=== PATIENT | female | born 1985 | race Caucasian/White ===

== ENCOUNTER 2018-03-13 18:44 | Inpatient (IN) | payer OTHER ==
[~2018-03-13] VITALS: Ht 170.2 cm; Wt 64.2 kg
[2018-03-13] MEDS ORDERED: MYCO250C PO (19:26)
[2018-03-13] MEDS ORDERED: MESA500C PO (19:26)
[2018-03-13] MEDS ORDERED: TACR1CAP4 PO (19:26)
[2018-03-13] MEDS ORDERED: PRED5TAB PO (19:26)
[2018-03-13 19:46] LABS: ALANINE AMINOTRANSFERASE 36 U/L (12-78); ALBUMIN 3.4 g/dL (3.4-5.0); ANION GAP 10 mmol/L (5-15); CALCIUM 8.5 mg/dL (8.5-10.1); CHLORIDE 102 mmol/L (98-107); CREATININE 2.37 mg/dL (0.55-1.02)
[2018-03-13 19:49] LABS: ALKALINE PHOSPHATASE 80 U/L (45-117); BILIRUBIN,TOTAL 0.7 mg/dL (0.2-1.0); TOTAL PROTEIN 7.9 g/dL (6.4-8.2)
[2018-03-13 20:06] LABS: HEMOGRAM NOTE RECHECKED; MEAN CORPUSCULAR HEMOGLOBIN 29.5 pg (27.0-34.8); MEAN CORPUSCULAR VOLUME 86.8 fL (80-100); MEAN PLATELET VOLUME 9.6 fL (7.4-10.4); PLATELET COUNT 92 x10^3/uL (130-400); RED CELL DISTRIBUTION WIDTH 14.7 % (9.6-15.2)
[2018-03-13 20:07] LABS: MD YES
[2018-03-13 20:12] LABS: BAND#(MANUAL) 0.01 x10^3/uL; BANDS%(MANUAL) 2 % (0-7); EOS#(MANUAL) 0.04 x10^3/uL (0.0-0.4); EOS% (MANUAL) 6 % (1-7); LYMPH#(MANUAL) 0.27 x10^3/uL (1-3.4); LYMPHS% (MANUAL) 39 % (22-44); MONOS#(MANUAL) 0.08 x10^3/uL (0.3-2.7); MONOS% (MANUAL) 11 % (2-9); SEG#(MANUAL) 0.29 x10^3/uL (1.8-6.8); SEGS% (MANUAL) 42 % (42-75)
[2018-03-13 20:13] LABS: <PLATELET ESTIMATE> DECREASED; <PLT MORPHOLOGY> NORMAL PLT MORPH; ANISOCYTOSIS 1+; OVALOCYTES 1+; TOXIC GRAN 1+
[2018-03-13] MEDS ORDERED: POTASSIUM CHLORIDE 20 MEQ TAB.ER.PRT ONE (21:10)
[2018-03-13] MEDS ORDERED: POTASSIUM CHLORIDE 20 MEQ TAB.ER.PRT PO ONE (21:30)
[2018-03-13 22:17] LABS: RED BLOOD COUNT 3.12 x10^6/uL (3.82-5.3)
[2018-03-13 22:25] LABS: ABSOLUTE RETICS # 0.062 x10^6/uL (0.5-2.5); RETICULOCYTE COUNT % 1.98 % (0.5-1.5)
[2018-03-13] MEDS ORDERED: ONDANSETRON 2MG/ML, 2ML IVPush PRN (23:30)
[2018-03-13] MEDS ORDERED: ONDANSETRON ODT 4 MG PO PRN (23:30)
[2018-03-13 23:39] VITALS: BP 148/96
[2018-03-14] MEDS: MESALAMINE 250 MG CAPSULE.ER PO SCH ×4 (00:18→20:43)
[2018-03-14] MEDS: AMOXICILLIN 500 MG CAPSULE PO SCH ×3 (00:39→20:44)
[2018-03-14] MEDS: ACYCLOVIR 400 MG TABLET PO SCH ×2 (00:39→09:56)
[2018-03-14] MEDS ORDERED: ACYC500V BC (01:23)
[2018-03-14] MEDS ORDERED: AMOX500T BC (01:23)
[2018-03-14] MEDS ORDERED: AMLO1POW2 BC (01:23)
[2018-03-14 01:32] VITALS: BP 120/76
[2018-03-14] MEDS: NS + 20MEQ KCL 1,000 ML IV SCH ×2 (01:33→11:21)
[2018-03-14 04:33] LABS: CREATININE,URINE RANDOM 34.4 mg/dL
[2018-03-14 05:15] LABS: MICROSCOPIC NOT IND
[2018-03-14 05:18] LABS: CULTURE INDICATED? NO
[2018-03-14 05:27] LABS: MEAN CORPUSCULAR HEMOGLOBIN 28.9 pg (27.0-34.8); MEAN CORPUSCULAR HGB CONC 33.9 g/dL (32.4-35.8); MEAN CORPUSCULAR VOLUME 85.4 fL (80-100); RED BLOOD COUNT 2.77 x10^6/uL (3.82-5.3); RED CELL DISTRIBUTION WIDTH 14.3 % (9.6-15.2)
[2018-03-14 05:28] LABS: ALBUMIN 2.7 g/dL (3.4-5.0); ANION GAP 9 mmol/L (5-15); CALCIUM 7.6 mg/dL (8.5-10.1); CHLORIDE 106 mmol/L (98-107)
[2018-03-14 05:31] LABS: ALANINE AMINOTRANSFERASE 33 U/L (12-78); ALKALINE PHOSPHATASE 65 U/L (45-117); BILIRUBIN,TOTAL 0.6 mg/dL (0.2-1.0); CREATININE 1.84 mg/dL (0.55-1.02); TOTAL PROTEIN 6.5 g/dL (6.4-8.2)
[2018-03-14 06:29] LABS: MD YES; MEAN PLATELET VOLUME 9.7 fL (7.4-10.4); PLATELET COUNT 67 x10^3/uL (130-400)
[2018-03-14 06:38] LABS: ANISOCYTOSIS 1+; BAND#(MANUAL) 0.02 x10^3/uL; BANDS%(MANUAL) 3 % (0-7); LYMPH#(MANUAL) 0.38 x10^3/uL (1-3.4); LYMPHS% (MANUAL) 64 % (22-44); MONOS#(MANUAL) 0.03 x10^3/uL (0.3-2.7); MONOS% (MANUAL) 5 % (2-9); OVALOCYTES 1+; SEG#(MANUAL) 0.17 x10^3/uL (1.8-6.8); SEGS% (MANUAL) 28 % (42-75); TOXIC GRAN 1+
[2018-03-14 06:39] LABS: <PLATELET ESTIMATE> DECREASED; <PLT MORPHOLOGY> NORMAL PLT MORPH
[2018-03-14 07:59] VITALS: BP 123/83
[2018-03-14] MEDS ORDERED: TACROLIMUS 1 MG CAPSULE PO SCH (10:00)
[2018-03-14] MEDS ORDERED: LIDOCAINE 2% VISCOUS 15 ML UDC MM PRN (10:30)
[2018-03-14] MEDS ORDERED: LIDOCAINE 2% VISCOUS, 100ML MM PRN (10:30)
[2018-03-14] MEDS: AMLODIPINE 5 MG TABLET PO SCH (11:24)
[2018-03-14] MEDS ORDERED: MAGNESIUM SULFATE PMX 2GM/50ML 50 ML IV ONE (12:30)
[2018-03-14 15:50] VITALS: BP 134/88
[2018-03-14] MEDS: ACYCLOVIR 660 MG in SODIUM CHLORIDE 0.9% 100 ML IV SCH (18:08)
[2018-03-14] MEDS ORDERED: TBO-FILGRASTIM 300 MCG/0.5 ML SQ SCH (18:30)
[2018-03-14 20:05] VITALS: BP 125/82
[2018-03-14] MEDS: FILGRASTIM 300 MCG/ML SQ SCH (20:44)
[2018-03-15] MEDS: NS + 20MEQ KCL 1,000 ML IV SCH ×2 (00:28→10:01)
[2018-03-15] MEDS: ACYCLOVIR 660 MG in SODIUM CHLORIDE 0.9% 100 ML IV SCH ×2 (03:18→16:25)
[2018-03-15 03:19] VITALS: BP 113/74
[2018-03-15] MEDS: MESALAMINE 250 MG CAPSULE.ER PO SCH ×4 (06:12→20:53)
[2018-03-15 07:21] LABS: ANION GAP 10 mmol/L (5-15); CHLORIDE 111 mmol/L (98-107)
[2018-03-15 07:26] LABS: MEAN CORPUSCULAR HEMOGLOBIN 29.1 pg (27.0-34.8); MEAN CORPUSCULAR HGB CONC 33.7 g/dL (32.4-35.8); MEAN CORPUSCULAR VOLUME 86.3 fL (80-100); PLATELET COUNT 66 x10^3/uL (130-400); RED BLOOD COUNT 2.72 x10^6/uL (3.82-5.3); RED CELL DISTRIBUTION WIDTH 14.6 % (9.6-15.2)
[2018-03-15 07:37] VITALS: BP 114/75
[2018-03-15 07:41] LABS: MD YES
[2018-03-15 07:50] LABS: BAND#(MANUAL) 0.03 x10^3/uL; BANDS%(MANUAL) 4 % (0-7); LYMPH#(MANUAL) 0.37 x10^3/uL (1-3.4); LYMPHS% (MANUAL) 46 % (22-44); MONOS#(MANUAL) 0.03 x10^3/uL (0.3-2.7); MONOS% (MANUAL) 4 % (2-9); SEG#(MANUAL) 0.37 x10^3/uL (1.8-6.8); SEGS% (MANUAL) 46 % (42-75)
[2018-03-15 07:51] LABS: <PLATELET ESTIMATE> DECREASED; <PLT MORPHOLOGY> NORMAL PLT MORPH; ANISOCYTOSIS 1+; OVALOCYTES 1+; TOXIC GRAN 1+
[2018-03-15] MEDS: AMLODIPINE 5 MG TABLET PO SCH (08:49)
[2018-03-15] MEDS: AMOXICILLIN 500 MG CAPSULE PO SCH ×2 (08:49→20:53)
[2018-03-15] MEDS ORDERED: TBO-FILGRASTIM 300 MCG/0.5 ML SQ SCH (09:00)
[2018-03-15 12:06] LABS: ALBUMIN 2.6 g/dL (3.4-5.0)
[2018-03-15 12:10] LABS: BILIRUBIN, DIRECT 0.2 mg/dL (0.1-0.2); BILIRUBIN,INDIRECT 0.4 mg/dL (0.0-2.0); BILIRUBIN,TOTAL 0.6 mg/dL (0.2-1.0); TOTAL PROTEIN 6.2 g/dL (6.4-8.2)
[2018-03-15 13:32] VITALS: BP 122/83
[2018-03-15 19:51] VITALS: BP 128/85
[2018-03-15] MEDS: FILGRASTIM 300 MCG/ML SQ SCH (20:53)
[2018-03-15] MEDS ORDERED: NS + 20MEQ KCL 1,000 ML IV SCH (23:23)
[2018-03-16 03:00] VITALS: BP 121/80
[2018-03-16] MEDS: ACYCLOVIR 660 MG in SODIUM CHLORIDE 0.9% 100 ML IV SCH (03:16)
[2018-03-16] MEDS: MESALAMINE 250 MG CAPSULE.ER PO SCH ×4 (05:06→20:51)
[2018-03-16 06:44] VITALS: BP 120/75
[2018-03-16 08:03] LABS: ALBUMIN 2.6 g/dL (3.4-5.0); ANION GAP 8 mmol/L (5-15); CALCIUM 7.7 mg/dL (8.5-10.1); CHLORIDE 113 mmol/L (98-107)
[2018-03-16 08:05] LABS: MEAN CORPUSCULAR HEMOGLOBIN 28.5 pg (27.0-34.8); MEAN CORPUSCULAR HGB CONC 33.3 g/dL (32.4-35.8); MEAN CORPUSCULAR VOLUME 85.7 fL (80-100); MEAN PLATELET VOLUME 10.3 fL (7.4-10.4); PLATELET COUNT 70 x10^3/uL (130-400); RED BLOOD COUNT 2.89 x10^6/uL (3.82-5.3); RED CELL DISTRIBUTION WIDTH 14.7 % (9.6-15.2)
[2018-03-16 08:06] LABS: ALANINE AMINOTRANSFERASE 36 U/L (12-78); ALKALINE PHOSPHATASE 70 U/L (45-117); BILIRUBIN,TOTAL 0.8 mg/dL (0.2-1.0); CREATININE 1.33 mg/dL (0.55-1.02); TOTAL PROTEIN 6.3 g/dL (6.4-8.2)
[2018-03-16] MEDS: AMLODIPINE 5 MG TABLET PO SCH (08:13)
[2018-03-16] MEDS: AMOXICILLIN 500 MG CAPSULE PO SCH ×2 (08:13→20:51)
[2018-03-16 08:22] LABS: MD YES
[2018-03-16 08:28] LABS: BAND#(MANUAL) 0.06 x10^3/uL; BANDS%(MANUAL) 4 % (0-7); BASOS#(MANUAL) 0.03 x10^3/uL (0-0.1); BASOS% (MANUAL) 2 % (0-1); LYMPH#(MANUAL) 0.48 x10^3/uL (1-3.4); LYMPHS% (MANUAL) 30 % (22-44); MONOS#(MANUAL) 0.21 x10^3/uL (0.3-2.7); MONOS% (MANUAL) 13 % (2-9); SEG#(MANUAL) 0.82 x10^3/uL (1.8-6.8); SEGS% (MANUAL) 51 % (42-75)
[2018-03-16 08:29] LABS: ANISOCYTOSIS 1+; OVALOCYTES 1+; POLYCHROMASIA 1+; TOXIC GRAN 1+
[2018-03-16 08:30] LABS: <PLATELET ESTIMATE> DECREASED; <PLT MORPHOLOGY> NORMAL PLT MORPH; SCHISTOCYTES 1+
[2018-03-16 08:31] LABS: SPHEROCYTES 1+
[2018-03-16] MEDS ORDERED: POTASSIUM CHLORIDE 20 MEQ TAB.ER.PRT PO ONE (09:00)
[2018-03-16 12:27] VITALS: BP 124/83
[2018-03-16 19:55] VITALS: BP 126/86
[2018-03-16] MEDS: FILGRASTIM 300 MCG/ML SQ SCH (20:52)
[2018-03-17 04:21] VITALS: BP 122/82
[2018-03-17 04:45] LABS: MEAN CORPUSCULAR HGB CONC 33.8 g/dL (32.4-35.8); MEAN PLATELET VOLUME 9.9 fL (7.4-10.4); PLATELET COUNT 69 x10^3/uL (130-400); RED BLOOD COUNT 2.96 x10^6/uL (3.82-5.3); RED CELL DISTRIBUTION WIDTH 15.5 % (9.6-15.2)
[2018-03-17 04:53] LABS: ALBUMIN 2.6 g/dL (3.4-5.0); ANION GAP 9 mmol/L (5-15); CHLORIDE 113 mmol/L (98-107)
[2018-03-17 04:58] LABS: % IRON SATURATION 27 % (20-55); ALANINE AMINOTRANSFERASE 35 U/L (12-78); ALKALINE PHOSPHATASE 70 U/L (45-117); CREATININE 1.32 mg/dL (0.55-1.02); IRON LEVEL 55 mcg/dL (50-170); TOTAL IRON BINDING CAPACITY 201 mcg/dL (250-450); TOTAL PROTEIN 6.4 g/dL (6.4-8.2)
[2018-03-17 05:48] LABS: MD YES
[2018-03-17] MEDS: MESALAMINE 250 MG CAPSULE.ER PO SCH ×4 (05:51→21:15)
[2018-03-17 05:53] LABS: ANISOCYTOSIS 1+; BAND#(MANUAL) 0.05 x10^3/uL; BANDS%(MANUAL) 3 % (0-7); EOS#(MANUAL) 0.05 x10^3/uL (0.0-0.4); EOS% (MANUAL) 3 % (1-7); LYMPH#(MANUAL) 0.52 x10^3/uL (1-3.4); LYMPHS% (MANUAL) 29 % (22-44); METAMYELOCYTES# (MANUAL) 0.04 x10^3/uL (0-0); METAMYELOCYTES% (MANUAL) 2 % (0-1); MONOS#(MANUAL) 0.07 x10^3/uL (0.3-2.7); MONOS% (MANUAL) 4 % (2-9); OVALOCYTES 1+; POLYCHROMASIA 1+; SEG#(MANUAL) 1.06 x10^3/uL (1.8-6.8); SEGS% (MANUAL) 59 % (42-75)
[2018-03-17 05:58] LABS: SCHISTOCYTES 1+; TOXIC GRAN 1+
[2018-03-17 05:59] LABS: <PLATELET ESTIMATE> DECREASED; <PLT MORPHOLOGY> NORMAL PLT MORPH
[2018-03-17 06:52] VITALS: BP 121/80
[2018-03-17] MEDS ORDERED: MAGNESIUM SULFATE PMX 4GM/100M 100 ML IV ONE (07:30)
[2018-03-17] MEDS ORDERED: MAGNESIUM SULFATE PMX 2GM/50ML 50 ML IV ONE (09:00)
[2018-03-17] MEDS: AMOXICILLIN 500 MG CAPSULE PO SCH ×2 (09:42→21:14)
[2018-03-17] MEDS: AMLODIPINE 5 MG TABLET PO SCH (09:42)
[2018-03-17 12:10] VITALS: BP 125/83
[2018-03-17] MEDS: FILGRASTIM 300 MCG/ML SQ SCH (21:00)
[2018-03-17 22:08] VITALS: BP 123/83
[2018-03-18 04:22] VITALS: BP 116/79
[2018-03-18 05:00] LABS: MEAN CORPUSCULAR HEMOGLOBIN 29.5 pg (27.0-34.8); MEAN CORPUSCULAR HGB CONC 34.2 g/dL (32.4-35.8); MEAN CORPUSCULAR VOLUME 86.1 fL (80-100); MEAN PLATELET VOLUME 9.9 fL (7.4-10.4); PLATELET COUNT 63 x10^3/uL (130-400); RED BLOOD COUNT 2.81 x10^6/uL (3.82-5.3); RED CELL DISTRIBUTION WIDTH 14.6 % (9.6-15.2)
[2018-03-18 05:06] LABS: ALANINE AMINOTRANSFERASE 32 U/L (12-78); ALBUMIN 2.5 g/dL (3.4-5.0); ANION GAP 10 mmol/L (5-15); CHLORIDE 111 mmol/L (98-107)
[2018-03-18 05:08] LABS: ALKALINE PHOSPHATASE 68 U/L (45-117); BILIRUBIN,TOTAL 0.6 mg/dL (0.2-1.0); CREATININE 1.29 mg/dL (0.55-1.02); TOTAL PROTEIN 6.3 g/dL (6.4-8.2)
[2018-03-18 05:38] LABS: MD YES
[2018-03-18 05:48] LABS: BAND#(MANUAL) 0.06 x10^3/uL; BANDS%(MANUAL) 4 % (0-7); EOS#(MANUAL) 0.04 x10^3/uL (0.0-0.4); EOS% (MANUAL) 3 % (1-7); LYMPH#(MANUAL) 0.28 x10^3/uL (1-3.4); LYMPHS% (MANUAL) 20 % (22-44); MONOS% (MANUAL) 7 % (2-9); SEG#(MANUAL) 0.92 x10^3/uL (1.8-6.8); SEGS% (MANUAL) 66 % (42-75)
[2018-03-18 05:49] LABS: ANISOCYTOSIS 1+; OVALOCYTES 1+; POLYCHROMASIA 1+
[2018-03-18 05:50] LABS: <PLATELET ESTIMATE> DECREASED; <PLT MORPHOLOGY> NORMAL PLT MORPH; SCHISTOCYTES 1+; TOXIC GRAN 1+
[2018-03-18] MEDS: MESALAMINE 250 MG CAPSULE.ER PO SCH ×3 (06:39→16:17)
[2018-03-18 06:43] VITALS: BP 123/81
[2018-03-18] MEDS: AMOXICILLIN 500 MG CAPSULE PO SCH (09:01)
[2018-03-18] MEDS: AMLODIPINE 5 MG TABLET PO SCH (09:01)
[2018-03-18] MEDS ORDERED: AMOXICILLIN/CLAV 500-125MG TABLET PO SCH (11:00)
[2018-03-18] MEDS ORDERED: FLUCONAZOLE 200 MG TABLET PO SCH (12:00)
[2018-03-18] MEDS ORDERED: TACROLIMUS 0.5 MG CAPSULE PO SCH (12:00)
[2018-03-18 12:16] VITALS: BP 124/86
[2018-03-18] MEDS ORDERED: POTASSIUM CHLORIDE 20 MEQ TAB.ER.PRT PO ONE (12:30)
[2018-03-18] MEDS ORDERED: TACR1CAP4 PO (16:10)
[2018-03-18] MEDS ORDERED: FILGRASTIM 300 MCG/ML SQ SCH (17:00)
== END 2018-03-18 18:20 | disposition home or self-care (01) | DRG 809 ==
LOC: ED 21:26 → EDIP 22:29 → 3NW 23:26
PROVIDERS: ADMIT Internal Medicine; ATTEND Internal Medicine
DX: D61.818 Other pancytopenia (principal); D84.9 Immunodeficiency, unspecified; E44.0 Moderate protein-calorie malnutrition; E87.1 Hypo-osmolality and hyponatremia; K50.90 Crohn's disease, unspecified, without complications; N17.9 Acute kidney failure, unspecified; Z94.4 Liver transplant status; B00.9 Herpesviral infection, unspecified; B27.00 Gammaherpesviral mononucleosis without complication; E83.42 Hypomagnesemia; E87.6 Hypokalemia; F12.90 Cannabis use, unspecified, uncomplicated; G89.29 Other chronic pain; H11.32 Conjunctival hemorrhage, left eye; I10 Essential (primary) hypertension; J06.9 Acute upper respiratory infection, unspecified; K12.0 Recurrent oral aphthae; K13.0 Diseases of lips; K75.4 Autoimmune hepatitis; M41.9 Scoliosis, unspecified; Z79.899 Other long term (current) drug therapy; Z68.22 Body mass index [BMI] 22.0-22.9, adult
CPT/HCPCS: 36415; 80048; 80053; 80076; 80197; 81003; 82306; 82436; 82570; 82728; 83540; 83550; 83735; 84100; 84133; 84300; 84550; 85025; 85045; 86361; 87529; 99285; J0133; J1442; J3480; J7507; J3475; J7512